=== PATIENT | female | born 1980 | race Caucasian/White ===

== ENCOUNTER 2016-10-16 08:46 | Emergency (ER) | payer OTHER ==
[~2016-10-16] VITALS: Ht 167.6 cm; Wt 93.0 kg
[~2016-10-16 08:46] MED LIST: ANAPROX DS550 MG PO; METFORMIN HYDR500 M1 PO; MULTIVITAMIN FO1 CAP PO; PHENERGAN25 MG RC
[2016-10-16 08:55] VITALS: BP 120/69
[2016-10-16] MEDS ORDERED: METFORMIN500 MG PO (08:57)
[2016-10-16] MEDS ORDERED: SEPTRA DS 800 M1 TAB PO (08:58)
[2016-10-16] MEDS ORDERED: PREDNISONE10 MG PO (09:39)
[2016-10-16] MEDS ORDERED: ROBITUSSIN AC 110 ML PO (09:39)
[2016-10-16] MEDS ORDERED: FLONASE ALLERG9.9 ML NAS (09:39)
[2016-10-16] MEDS ORDERED: CLARITIN10 MG PO (09:39)
== END 2016-10-16 11:13 | disposition home or self-care (01) ==
LOC: ED 08:46
DX: B34.9 Viral infection, unspecified (principal)

== ENCOUNTER → 2019-10-11 | Outpatient (CLI) | payer OTHER ==
[~2019-10-11] MED LIST changes: +CLARITIN10 MG PO; +FLONASE ALLERG9.9 ML NAS; +GLUCOPHAGE1000 MG PO; +METFORMIN HYDR500 MG PO; +METFORMIN500 MG PO; +OMEPRAZOLE40 MG PO; +PREDNISONE10 MG PO; +PROVENTIL HFA6.7 GM INH; +ROBITUSSIN AC 110 ML PO; +SEPTRA DS 800 M1 TAB PO
[2019-10-11 17:04] LABS: ALBUMIN 3.6 gm/dl (3.1-4.5); ALKALINE PHOSPHATASE 166 U/L (45-117); BUN 9 mg/dl (7-24); CHLORIDE 104 mmol/L (98-107); CREATININE 0.89 mg/dL (0.55-1.02); POTASSIUM 3.9 mmol/L (3.5-5.1); SGOT/AST 50 IU/L (3-35); SGPT/ALT 106 U/L (12-78); SODIUM 137 mmol/L (136-145); TOTAL PROTEIN 8.1 gm/dL (6.4-8.2)
== END | disposition home or self-care (01) ==
LOC: LAB 15:56
PROVIDERS: Family Medicine
DX: R79.89 Other specified abnormal findings of blood chemistry (principal)

== ENCOUNTER → 2019-11-04 | Outpatient (CLI) | payer OTHER | END | disposition home or self-care (01) | LOC: D 10:21 | DX: E11.9 Type 2 diabetes mellitus without complications (principal) ==

== ENCOUNTER 2020-08-03 22:55 | Inpatient (IN) | payer OTHER ==
[~2020-08-03] VITALS: Ht 167.6 cm; Wt 84.5 kg
[2020-08-03 23:02] VITALS: BP 115/79
[2020-08-03 23:38] LABS: BASO # 0.1 10*3/uL (0.0-0.1); BASO % 0.4 % (0.0-1.0); EOS # 0.2 10*3/uL (0.0-0.4); EOS % 1.4 % (1.0-4.0); HEMATOCRIT 45.6 % (37.0-47.0); LYMPH # 2.7 10*3/uL (1.3-4.4); MEAN CELL VOLUME 83.1 fl (81.0-99.0); MEAN CORPUSCULAR HGB 28.1 pg (27.0-31.0); MEAN CORPUSCULAR HGB CONC 33.8 g/dl (33.0-37.0); MEAN PLATELET VOLUME 9.1 fl (9.6-12.3); MONO % 7.5 % (3.0-9.0); NEUT # 9.3 10*3/uL (2.3-7.9); PLATELET COUNT AUTOMATED 350 10*3/uL (130-400); RED BLOOD COUNT 5.49 10*6/uL (4.10-5.10); RED CELL DISTRI WIDTH 12.2 % (0-14.5); WHITE BLOOD COUNT 13.3 10*3/uL (4.8-10.8)
[2020-08-03 23:55] LABS: ALBUMIN 3.5 gm/dl (3.1-4.5); ALKALINE PHOSPHATASE 176 U/L (45-117); BUN 8 mg/dl (7-24); CHLORIDE 100 mmol/L (98-107); CREATININE 0.91 mg/dL (0.55-1.02); POTASSIUM 3.5 mmol/L (3.5-5.1); SGOT/AST 37 IU/L (3-35); SGPT/ALT 79 U/L (12-78); SODIUM 133 mmol/L (136-145); TOTAL PROTEIN 8.1 gm/dL (6.4-8.2)
[2020-08-04] VITALS (11 sets, daily range): BP systolic 103–142; BP diastolic 63–88
[2020-08-04 06:19] LABS: BASO # 0.1 10*3/uL (0.0-0.1); BASO % 0.4 % (0.0-1.0); EOS # 0.3 10*3/uL (0.0-0.4); EOS % 2.4 % (1.0-4.0); HEMATOCRIT 40.5 % (37.0-47.0); LYMPH # 3.7 10*3/uL (1.3-4.4); LYMPH % 26.6 % (27.0-41.0); MEAN CELL VOLUME 84.4 fl (81.0-99.0); MEAN CORPUSCULAR HGB 28.8 pg (27.0-31.0); MEAN CORPUSCULAR HGB CONC 34.1 g/dl (33.0-37.0); MEAN PLATELET VOLUME 9.6 fl (9.6-12.3); MONO # 1.1 10*3/uL (0.1-1.0); MONO % 8.1 % (3.0-9.0); NEUT # 8.7 10*3/uL (2.3-7.9); NEUT % 61.9 % (47.0-73.0); PLATELET COUNT AUTOMATED 306 10*3/uL (130-400); RED CELL DISTRI WIDTH 12.3 % (0-14.5)
[2020-08-04 06:48] LABS: BUN 7 mg/dl (7-24); CHLORIDE 108 mmol/L (98-107); POTASSIUM 2.9 mmol/L (3.5-5.1); SODIUM 140 mmol/L (136-145)
[2020-08-04 06:49] LABS: CREATININE 0.53 mg/dL (0.55-1.02)
[2020-08-05] VITALS: BP 114/76
[2020-08-05 08:00] VITALS: BP 118/86
[2020-08-05 09:53] LABS: BUN 7 mg/dl (7-24); CHLORIDE 107 mmol/L (98-107); CREATININE 0.62 mg/dL (0.55-1.02); POTASSIUM 3.7 mmol/L (3.5-5.1); SODIUM 140 mmol/L (136-145)
[2020-08-05 09:59] LABS: BASO # 0.1 10*3/uL (0.0-0.1); BASO % 0.5 % (0.0-1.0); EOS # 0.4 10*3/uL (0.0-0.4); EOS % 3.4 % (1.0-4.0); HEMATOCRIT 41.2 % (37.0-47.0); LYMPH # 2.2 10*3/uL (1.3-4.4); LYMPH % 20.1 % (27.0-41.0); MEAN CELL VOLUME 85.1 fl (81.0-99.0); MEAN CORPUSCULAR HGB 28.5 pg (27.0-31.0); MEAN CORPUSCULAR HGB CONC 33.5 g/dl (33.0-37.0); MEAN PLATELET VOLUME 9.2 fl (9.6-12.3); MONO # 0.9 10*3/uL (0.1-1.0); MONO % 7.7 % (3.0-9.0); NEUT # 7.5 10*3/uL (2.3-7.9); NEUT % 67.6 % (47.0-73.0); PLATELET COUNT AUTOMATED 310 10*3/uL (130-400); RED BLOOD COUNT 4.84 10*6/uL (4.10-5.10); RED CELL DISTRI WIDTH 12.5 % (0-14.5)
[2020-08-05] MEDS ORDERED: LANTUS SOL100 UNIT/1 SC (11:48)
[2020-08-05] MEDS ORDERED: HUMALOG100 UNIT/1 SC (11:48)
[2020-08-05] MEDS ORDERED: LISINOPRIL2.5 MG PO (11:52)
[2020-08-05] MEDS ORDERED: KEFLEX500 M1 PO (11:53)
[2020-08-05] MEDS ORDERED: DOXYCYCLINE100 M3 PO (11:53)
== END 2020-08-05 12:49 | disposition home or self-care (01) | DRG 854 ==
LOC: ED 22:55 → 4E 08-04 03:04 → EDHOLD 08-04 03:04 → 4E 08-04 03:21
PROVIDERS: Internal Medicine; Nurse Practitioner Family; ADMIT Family Medicine; ATTEND Family Medicine
PROC: 0J9L0ZZ Drainage of Right Upper Leg Subcutaneous Tissue and Fascia, Open Approach (ICD-10-PCS; principal; 2020-08-04)
DX: A41.9 Sepsis, unspecified organism (principal); L03.317 Cellulitis of buttock; E87.1 Hypo-osmolality and hyponatremia; L02.31 Cutaneous abscess of buttock; R65.20 Severe sepsis without septic shock; E11.65 Type 2 diabetes mellitus with hyperglycemia; K21.9 Gastro-esophageal reflux disease without esophagitis; J45.909 Unspecified asthma, uncomplicated; R74.01 Elevation of levels of liver transaminase levels; B37.9 Candidiasis, unspecified; Z85.42 Personal history of malignant neoplasm of other parts of uterus; Z90.710 Acquired absence of both cervix and uterus; Z83.3 Family history of diabetes mellitus; Z82.49 Family history of ischemic heart disease and other diseases of the circulatory system; Z79.899 Other long term (current) drug therapy

== ENCOUNTER → 2021-04-11 | Outpatient (CLI) | payer OTHER ==
[~2021-04-11] MED LIST changes: +DOXYCYCLINE100 M3 PO; +HUMALOG100 UNIT/1 SC; +KEFLEX500 M1 PO; +LANTUS SOL100 UNIT/1 SC; +LISINOPRIL2.5 MG PO
[2021-04-11 16:37] LABS: BASO # 0.1 10*3/uL (0.0-0.1); BASO % 0.6 % (0.0-1.0); EOS # 0.3 10*3/uL (0.0-0.4); EOS % 2.6 % (1.0-4.0); HEMATOCRIT 43.9 % (37.0-47.0); LYMPH # 3.3 10*3/uL (1.3-4.4); MEAN CELL VOLUME 86.4 fl (81.0-99.0); MEAN CORPUSCULAR HGB 28.9 pg (27.0-31.0); MEAN CORPUSCULAR HGB CONC 33.5 g/dl (33.0-37.0); MEAN PLATELET VOLUME 8.9 fl (9.6-12.3); MONO # 0.8 10*3/uL (0.1-1.0); MONO % 7.8 % (3.0-9.0); NEUT # 5.8 10*3/uL (2.3-7.9); NEUT % 56.4 % (47.0-73.0); PLATELET COUNT AUTOMATED 343 10*3/uL (130-400); RED BLOOD COUNT 5.08 10*6/uL (4.10-5.10); RED CELL DISTRI WIDTH 12.7 % (0-14.5); WHITE BLOOD COUNT 10.2 10*3/uL (4.8-10.8)
[2021-04-11 17:21] LABS: ALBUMIN 3.8 gm/dl (3.1-4.5); ALKALINE PHOSPHATASE 131 U/L (45-117); BUN 12 mg/dl (7-24); CHLORIDE 108 mmol/L (98-107); CHOLESTEROL 154 mg/dL (<200); CREATININE 0.66 mg/dL (0.55-1.02); LDL CHOLESTEROL 76 mg/dL (9-159); POTASSIUM 3.9 mmol/L (3.5-5.1); SGOT/AST 30 IU/L (3-35); SGPT/ALT 58 U/L (12-78); SODIUM 141 mmol/L (136-145); TRIGLYCERIDES 207 mg/dl (<150)
[2021-04-11 17:30] LABS: VITAMIN D, 25-HYDROXY 30.5 ng/mL (30-100)
== END | disposition home or self-care (01) ==
LOC: LAB 16:13
PROVIDERS: ATTEND Nurse Practitioner Primary Care
DX: R07.81 Pleurodynia (principal); E11.65 Type 2 diabetes mellitus with hyperglycemia; E55.9 Vitamin D deficiency, unspecified

== ENCOUNTER → 2021-07-10 | Outpatient (CLI) | payer OTHER | END | disposition home or self-care (01) | LOC: CARD 14:45 | PROVIDERS: ATTEND Nurse Practitioner Primary Care | DX: J45.20 Mild intermittent asthma, uncomplicated (principal); G89.29 Other chronic pain; K21.00 Gastro-esophageal reflux disease with esophagitis, without bleeding; Z86.79 Personal history of other diseases of the circulatory system ==

== ENCOUNTER → 2021-10-09 | Outpatient (CLI) | payer OTHER | END | disposition home or self-care (01) | LOC: COVID19 17:02 | PROVIDERS: ATTEND Podiatrist Foot & Ankle Surgery | DX: Z20.822 Contact with and (suspected) exposure to COVID-19 (principal) ==

== ENCOUNTER → 2022-05-22 | Outpatient (CLI) | payer OTHER | END | disposition home or self-care (01) | LOC: US 08:30 | PROVIDERS: ATTEND Physician Assistant | DX: K76.0 Fatty (change of) liver, not elsewhere classified (principal) ==

== ENCOUNTER 2023-01-21 16:32 | Emergency (ER) | payer OTHER ==
[~2023-01-21] VITALS: Ht 167.6 cm; Wt 80.7 kg
[2023-01-21 18:02] VITALS: BP 118/78
== END 2023-01-21 18:35 | disposition left against medical advice (07) ==
LOC: ED 16:32
DX: R07.9 Chest pain, unspecified (principal); Z53.21 Procedure and treatment not carried out due to patient leaving prior to being seen by health care provider

== ENCOUNTER 2023-10-10 17:03 | Emergency (ER) | payer OTHER ==
[~2023-10-10] VITALS: Ht 167.6 cm; Wt 74.8 kg
[2023-10-10 17:49] VITALS: BP 117/80
[2023-10-10 19:11] LABS: BASO # 0.1 10*3/uL (0.0-0.1); BASO % 0.6 % (0.0-1.0); EOS # 0.2 10*3/uL (0.0-0.4); LYMPH # 2.7 10*3/uL (1.3-4.4); LYMPH % 25.1 % (27.0-41.0); MEAN CELL VOLUME 84.7 fl (81.0-99.0); MEAN CORPUSCULAR HGB 28.7 pg (27.0-31.0); MEAN CORPUSCULAR HGB CONC 33.9 g/dl (33.0-37.0); MONO # 0.7 10*3/uL (0.1-1.0); MONO % 6.3 % (3.0-9.0); NEUT # 7.1 10*3/uL (2.3-7.9); NEUT % 65.5 % (47.0-73.0); PLATELET COUNT AUTOMATED 368 10*3/uL (130-400); RED BLOOD COUNT 5.43 10*6/uL (4.10-5.10); RED CELL DISTRI WIDTH 11.9 % (0-14.5); WHITE BLOOD COUNT 10.9 10*3/uL (4.8-10.8)
[2023-10-10 19:36] LABS: ALKALINE PHOSPHATASE 178 U/L (46-116); BUN 9 mg/dl (9-23); CHLORIDE 101 mmol/L (98-107); POTASSIUM 3.6 mmol/L (3.4-5.1); SGPT/ALT 33 U/L (5-49); TOTAL PROTEIN 7.5 gm/dL (6.0-8.0)
[2023-10-10] MEDS ORDERED: SEPTDS PO (21:58)
[2023-10-10] MEDS ORDERED: CEPHALEXIN500 M1 PO (21:58)
== END 2023-10-10 22:35 | disposition home or self-care (01) ==
LOC: ED 17:03
PROVIDERS: Physician Assistant Medical
DX: N76.4 Abscess of vulva (principal); R51.9 Headache, unspecified; E11.9 Type 2 diabetes mellitus without complications; Z90.710 Acquired absence of both cervix and uterus; Z98.51 Tubal ligation status

== ENCOUNTER 2024-09-08 12:11 | Emergency (ER) | payer OTHER ==
[~2024-09-08 12:11] MED LIST changes: +CEPHALEXIN500 M1 PO; +SEPTDS PO
== END 2024-09-08 14:39 | disposition left against medical advice (07) ==
LOC: ED 12:11
DX: R22.9 Localized swelling, mass and lump, unspecified (principal); Z53.21 Procedure and treatment not carried out due to patient leaving prior to being seen by health care provider

== ENCOUNTER 2024-11-05 06:58 | Inpatient (IN) | payer OTHER ==
[~2024-11-05] VITALS: Ht 167.6 cm; Wt 72.6 kg
[2024-11-05 07:16] VITALS: BP 133/106
[2024-11-05] MEDS ORDERED: Metoclopramide Hydrochloride 10 MG/2 ML VIAL IV ONE (07:25)
[2024-11-05] MEDS ORDERED: SODIUM CHLORIDE 0.9% 1,000 ML IV ONE ×4 (07:25→12:05)
[2024-11-05] MEDS ORDERED: diphenhydrAMINE hydrochloride 50 MG/ML VIAL IV ONE (07:25)
[2024-11-05] MEDS ORDERED: MORPHINE Sulfate 2 MG/ML SYR IV ONE (07:25)
[2024-11-05 07:34] LABS: BASO # 0.1 10*3/uL (0.0-0.1); BASO % 0.4 % (0.0-1.0); EOS # 0.2 10*3/uL (0.0-0.4); EOS % 0.8 % (1.0-4.0); HEMATOCRIT 47.1 % (37.0-47.0); MEAN CORPUSCULAR HGB 28.9 pg (27.0-31.0); MEAN CORPUSCULAR HGB CONC 34.4 g/dl (33.0-37.0); MEAN PLATELET VOLUME 8.8 fl (9.6-12.3); MONO # 1.4 10*3/uL (0.1-1.0); MONO % 6.8 % (3.0-9.0); NEUT # 15.1 10*3/uL (2.3-7.9); NEUT % 76.4 % (47.0-73.0); PLATELET COUNT AUTOMATED 375 10*3/uL (130-400); RED BLOOD COUNT 5.61 10*6/uL (4.10-5.10); RED CELL DISTRI WIDTH 11.9 % (0-14.5); WHITE BLOOD COUNT 19.8 10*3/uL (4.8-10.8)
[2024-11-05 08:00] LABS: BUN 10 mg/dl (9-23); CHLORIDE 100 mmol/L (98-107); LIPASE 33 U/L (12-53); POTASSIUM 3.7 mmol/L (3.4-5.1)
[2024-11-05 08:38] LABS: BILIRUBIN Negative (Negative); BLOOD Negative (Negative); CLARITY Cloudy (Clear); COLOR Yellow (Yellow); GLUCOSE 3+ (Negative); KETONE 1+ (Negative); LEUKO ESTERASE Negative (Negative); NITRITE Negative (Negative); SPECIFIC GRAVITY >= 1.030 (1.001-1.030); UROBILINOGEN 0.2 E.U./dl (0.0-1.0)
[2024-11-05] MEDS ORDERED: Ceftriaxone Sodium 1 GM/10 ML SYR IV ONE (08:50)
[2024-11-05 08:53] LABS: YEAST TRACE
[2024-11-05 08:54] LABS: BACTERIA 2+
[2024-11-05 08:55] LABS: RBC 0-2 rbc/hpf (0-2)
[2024-11-05] MEDS ORDERED: Magnesium Hydroxide 30 ML UDC PO PRN (12:05)
[2024-11-05] MEDS ORDERED: Ondansetron Hydrochloride 4 MG/2 ML VIAL IV PRN (12:05)
[2024-11-05] MEDS ORDERED: BISACODYL 5 MG TAB PO PRN (12:05)
[2024-11-05] MEDS ORDERED: ROSUVASTATIN CA10 MG PO (14:13)
[2024-11-05] MEDS ORDERED: JANUVIA100 MG PO (14:14)
[2024-11-05] MEDS ORDERED: LANTUS SOL100 UNIT/1 SC (14:17)
[2024-11-05] MEDS ORDERED: Albuterol Sulfate 2.5 MG/3 ML VIAL NEB PRN (14:20)
[2024-11-05] MEDS ORDERED: DEXTROSE 10 % IN WATER 250 ML IV PRN (14:35)
[2024-11-05] MEDS ORDERED: INSULIN LISPRO 1 UNIT/0.01 ML SQ SCH (16:30)
[2024-11-05 16:42] VITALS: BP 122/79
[2024-11-05 19:29] VITALS: BP 107/67
[2024-11-05 22:05] VITALS: BP 120/75
[2024-11-06] MEDS ORDERED: ACETAMINOPHEN 325 MG TAB PO PRN (05:10)
[2024-11-06] MEDS ORDERED: ACETAMINOPHEN 325 MG TAB ONE (05:51)
[2024-11-06] MEDS ORDERED: Pantoprazole Sodium 40 MG TAB PO SCH (06:00)
[2024-11-06 06:58] LABS: BASO # 0.1 10*3/uL (0.0-0.1); BASO % 0.5 % (0.0-1.0); EOS # 0.3 10*3/uL (0.0-0.4); EOS % 1.9 % (1.0-4.0); HEMATOCRIT 42.3 % (37.0-47.0); MEAN CELL VOLUME 84.1 fl (81.0-99.0); MEAN CORPUSCULAR HGB CONC 34.5 g/dl (33.0-37.0); MEAN PLATELET VOLUME 9.2 fl (9.6-12.3); MONO # 0.9 10*3/uL (0.1-1.0); MONO % 6.9 % (3.0-9.0); NEUT # 7.7 10*3/uL (2.3-7.9); NEUT % 59.1 % (47.0-73.0); PLATELET COUNT AUTOMATED 326 10*3/uL (130-400); RED BLOOD COUNT 5.03 10*6/uL (4.10-5.10); RED CELL DISTRI WIDTH 12.4 % (0-14.5)
[2024-11-06 07:28] LABS: ALKALINE PHOSPHATASE 93 U/L (46-116); CHLORIDE 107 mmol/L (98-107); CHOLESTEROL 162 mg/dL (<200); FREE T4 1.31 ng/dl (0.89-1.76); LDL CHOLESTEROL 101 mg/dL (9-159); POTASSIUM 3.2 mmol/L (3.4-5.1); SGPT/ALT 18 U/L (5-49); TOTAL PROTEIN 6.2 gm/dL (6.0-8.0); TRIGLYCERIDES 135 mg/dl (<150)
[2024-11-06 07:56] LABS: VITAMIN D, 25-HYDROXY 36.7 ng/mL (30-100)
[2024-11-06 08:00] VITALS: BP 109/65
[2024-11-06 08:06] LABS: BUN < 5 mg/dl (9-23)
[2024-11-06] MEDS ORDERED: Ceftriaxone Sodium 1 GM in SYRINGE INFUSION 10 ML IV SCH (10:00)
[2024-11-06] MEDS ORDERED: Insulin Glargine, Recombinan 1 UNIT/0.01 ML SC SCH (10:00)
[2024-11-06] MEDS ORDERED: Enoxaparin Sodium 40 MG/0.4 ML SYR SC SCH (10:00)
[2024-11-06] MEDS ORDERED: LINAGLIPTIN 5 MG TAB PO SCH (10:00)
[2024-11-06] MEDS ORDERED: FLUCONAZOLE 100 MG TAB PO SCH (10:00)
[2024-11-06] MEDS ORDERED: Rosuvastatin Calcium 10 MG TABLET PO SCH (10:00)
[2024-11-06] MEDS ORDERED: POTASSIUM CHLORIDE 20 MEQ TAB PO ONE (10:05)
[2024-11-06] MEDS ORDERED: POTASSIUM CHLORIDE 20 MEQ TAB ONE (10:55)
[2024-11-06] MEDS ORDERED: Ketorolac Tromethamine 30 MG/ML VIAL IV ONE (11:00)
[2024-11-06 12:00] VITALS: BP 122/81
[2024-11-06] MEDS ORDERED: Ketorolac Tromethamine 15 MG/ML VIAL ONE (12:15)
[2024-11-06] MEDS ORDERED: Ketorolac Tromethamine 30 MG/ML VIAL ONE (12:17)
[2024-11-06] MEDS ORDERED: AMOX-CLAV 875-1 EACH PO (13:20)
[2024-11-06] MEDS ORDERED: ONDANSETRON HYDR8 MG PO (13:20)
[2024-11-06] MEDS ORDERED: [UNRECOGNIZED DRUG - SUPPLY] MC (13:20)
[2024-11-06] MEDS ORDERED: HUMALOG100 UNIT/1 SC (13:20)
== END 2024-11-06 15:43 | disposition home or self-care (01) | DRG 872 ==
LOC: ED 06:58 → EDHOLD 09:44 → 4E 21:46
PROVIDERS: Emergency Medicine; ADMIT Family Medicine; ATTEND Family Medicine
DX: A41.9 Sepsis, unspecified organism (principal); N30.00 Acute cystitis without hematuria; R65.20 Severe sepsis without septic shock; D75.1 Secondary polycythemia; E11.65 Type 2 diabetes mellitus with hyperglycemia; J45.20 Mild intermittent asthma, uncomplicated; K21.9 Gastro-esophageal reflux disease without esophagitis; K29.00 Acute gastritis without bleeding; Z85.42 Personal history of malignant neoplasm of other parts of uterus; Z79.4 Long term (current) use of insulin; Z90.710 Acquired absence of both cervix and uterus; Z82.49 Family history of ischemic heart disease and other diseases of the circulatory system; Z83.3 Family history of diabetes mellitus; Z79.899 Other long term (current) drug therapy

== ENCOUNTER → 2024-12-07 | Outpatient (CLI) | payer OTHER ==
[~2024-12-07] MED LIST changes: +AMOX-CLAV 875-1 EACH PO; +JANUVIA100 MG PO; +ONDANSETRON HYDR8 MG PO; +ROSUVASTATIN CA10 MG PO; +[UNRECOGNIZED DRUG - SUPPLY] MC
[2024-12-07 16:51] LABS: ALKALINE PHOSPHATASE 132 U/L (46-116); BUN 13 mg/dl (9-23); CHLORIDE 100 mmol/L (98-107); CHOLESTEROL 196 mg/dL (<200); LDL CHOLESTEROL 124 mg/dL (9-159); SGPT/ALT 21 U/L (5-49); TOTAL PROTEIN 7.4 gm/dL (6.0-8.0); TRIGLYCERIDES 140 mg/dl (<150)
== END | disposition home or self-care (01) ==
LOC: LAB 15:57
PROVIDERS: Student in an Organized Health Care Education/Training Program; ATTEND Internal Medicine Endocrinology, Diabetes & Metabolism
DX: E11.65 Type 2 diabetes mellitus with hyperglycemia (principal)

== ENCOUNTER → 2025-03-23 | Outpatient (CLI) | payer OTHER ==
[2025-03-23 16:32] LABS: ALKALINE PHOSPHATASE 104 U/L (46-116); BUN 11 mg/dl (9-23); CHLORIDE 99 mmol/L (98-107); CHOLESTEROL 178 mg/dL (<200); LDL CHOLESTEROL 98 mg/dL (9-159); POTASSIUM 3.5 mmol/L (3.4-5.1); SGPT/ALT 20 U/L (5-49); TOTAL PROTEIN 7.2 gm/dL (6.0-8.0); TRIGLYCERIDES 211 mg/dl (<150)
== END | disposition home or self-care (01) ==
LOC: LAB 15:43
PROVIDERS: Internal Medicine; ATTEND Internal Medicine Endocrinology, Diabetes & Metabolism
DX: E11.65 Type 2 diabetes mellitus with hyperglycemia (principal)

== ENCOUNTER → 2025-06-27 | Outpatient (CLI) | payer OTHER ==
[2025-06-27 15:25] LABS: BUN 10 mg/dl (9-23); LDL CHOLESTEROL 91 mg/dL (9-159); SGPT/ALT 18 U/L (5-49)
== END | disposition home or self-care (01) ==
LOC: LAB 14:33
PROVIDERS: Internal Medicine; ATTEND Internal Medicine Endocrinology, Diabetes & Metabolism
DX: E11.65 Type 2 diabetes mellitus with hyperglycemia (principal)